=== PATIENT | female | born 1980 | race African-American/Black ===

== ENCOUNTER 2017-02-06 04:28 | Emergency (ER) | payer OTHER ==
[~2017-02-06] VITALS: Ht 149.9 cm; Wt 99.8 kg
[~2017-02-06 04:28] MED LIST: ANTIVERT25 MG PO
[2017-02-06 04:56] LABS: URINE BILIRUBIN NEGATIVE (Negative); URINE BLOOD 3+ (Negative); URINE COLOR YELLOW; URINE GLUCOSE-RANDOM* NEGATIVE (Negative); URINE KETONES NEGATIVE (Negative); URINE NITRITE NEGATIVE (Negative); URINE PROTEIN (DIPSTICK) 1+ (Negative); URINE SPECIFIC GRAVITY 1.025 (1.003-1.035)
[2017-02-06] MEDS ORDERED: MACROBID 100 M100 M1 PO (05:03)
[2017-02-06 05:07] LABS: SQUAMOUS 0-3 Few /LPF (0-3)
[2017-02-06 05:08] LABS: BACTERIA >30 Many /HPF (None Seen); CASTS None Seen /LPF (None Seen); URINE WBC >25 Many /HPF (0-5)
[2017-02-06 05:09] LABS: CRYSTALS None Seen /LPF (None Seen)
[2017-02-06 05:42] VITALS: BP 124/84
== END 2017-02-06 05:44 | disposition home or self-care (01) ==
LOC: ER 04:28
PROVIDERS: Emergency Medicine
DX: N39.0 Urinary tract infection, site not specified (principal); Z88.6 Allergy status to analgesic agent